=== PATIENT | male | born 1975 | race Caucasian/White ===

== ENCOUNTER → 2018-08-16 08:18 | Outpatient (CLI) | payer OTHER, SELFPAY ==
[2018-08-16 10:49] LABS: Vitamin D,25 Hydroxy 10.6 ng/mL (29.95-100.01)
[2018-08-16 12:13] LABS: Anion Gap 8 (5-15); BUN 14 mg/dL (7-18); BUN/Creat Ratio 15.7 RATIO (10-20); Calcium,Total 8.8 mg/dL (8.5-10.1); Chloride 102 mmol/L (98-107); Cholesterol 139 mg/dL (200); Creatinine, Serum 0.89 mg/dL (0.70-1.30); EST Glomerular Filtration Rate 99 mL/min (>60); Est Glom Filt Rate - Afr Amer 120 mL/min (>60); Glucose 101 mg/dL (74-106); High Density Lipoprotein 38 mg/dL; Potassium 4.1 mmol/L (3.5-5.1); Sodium Level 140 mmol/L (136-145); Thyroid Stim Hormone (TSH) 1.07 uIU/mL (0.358-3.74); Triglycerides 131 mg/dL; Very Low Density Lipoprotein 26 mg/dL (5-40)
== END ==
PROVIDERS: Family Provider Family Medicine; PCP Family Medicine; Visit Provider Family Medicine
DX: I10 Essential (primary) hypertension (principal); E55.9 Vitamin D deficiency, unspecified; R53.83 Other fatigue
CPT/HCPCS: 36415; 80048; 80061; 82306; 84443

== ENCOUNTER 2022-05-13 08:03 | Outpatient (CLI) | payer BC, SELFPAY ==
[2022-05-13 10:21] LABS: Vitamin D,25 Hydroxy 47.3 ng/mL
[2022-05-13 10:26] LABS: Anion Gap 6 (5-15); BUN 18 mg/dL (7-18); Calcium,Total 8.4 mg/dL (8.5-10.1); Chloride 105 mmol/L (98-107); Cholesterol 118 mg/dL (200); Creatinine, Serum 0.86 mg/dL (0.70-1.30); EST Glomerular Filtration Rate 102 mL/min (>60); Est Glom Filt Rate - Afr Amer 124 mL/min (>60); Glucose 123 mg/dL (74-106); High Density Lipoprotein 37 mg/dL; Potassium 3.7 mmol/L (3.5-5.1); Sodium Level 140 mmol/L (136-145); Thyroid Stim Hormone (TSH) 0.94 uIU/mL (0.358-3.74); Triglycerides 103 mg/dL; Very Low Density Lipoprotein 21 mg/dL (5-40)
[2022-05-17 17:39] LABS: Hemoglobin A1c 6.9 % (3.8-5.6)
== END 2022-05-13 23:59 | disposition home or self-care (01) ==
LOC: MFPLAB 08:04
PROVIDERS: PCP Family Medicine; Referring Provider Family Medicine; Visit Provider Family Medicine
DX: I10 Essential (primary) hypertension (principal); E11.9 Type 2 diabetes mellitus without complications; R53.83 Other fatigue
CPT/HCPCS: 36415; 80048; 80061; 82306; 83036; 84403; 84443

== ENCOUNTER → 2022-06-08 | Outpatient (CLI) | payer BC, SELFPAY | END | disposition home or self-care (01) | LOC: MFPLAB 11:01 | PROVIDERS: PCP Family Medicine; Referring Provider Family Medicine; Visit Provider Family Medicine | DX: R68.82 Decreased libido (principal) | CPT/HCPCS: 36415; 84403 ==

== ENCOUNTER → 2022-08-18 | Outpatient (CLI) | payer BC, SELFPAY ==
[2022-08-18 10:38] LABS: Anion Gap 4 (5-15); BUN 15 mg/dL (7-18); BUN/Creat Ratio 17.7 RATIO (10-20); Calcium,Total 9.1 mg/dL (8.5-10.1); Chloride 102 mmol/L (98-107); Creatinine, Serum 0.85 mg/dL (0.70-1.30); EST Glomerular Filtration Rate 104 mL/min (>60); Est Glom Filt Rate - Afr Amer 126 mL/min (>60); Glucose 149 mg/dL (74-106); Potassium 4.4 mmol/L (3.5-5.1); Sodium Level 137 mmol/L (136-145)
== END | disposition home or self-care (01) ==
LOC: MFPLAB 09:14
PROVIDERS: PCP Family Medicine; Referring Provider Family Medicine; Visit Provider Family Medicine
DX: E29.1 Testicular hypofunction (principal); E11.9 Type 2 diabetes mellitus without complications
CPT/HCPCS: 36415; 80048; 84403

== ENCOUNTER → 2023-02-13 | Outpatient (CLI) | payer BC, SELFPAY ==
[2023-02-13 10:37] LABS: Anion Gap 5 (5-15); BUN 16 mg/dL (7-18); BUN/Creat Ratio 17.6 RATIO (10-20); Calcium,Total 9.3 mg/dL (8.5-10.1); Chloride 103 mmol/L (98-107); Creatinine, Serum 0.91 mg/dL (0.70-1.30); EST Glomerular Filtration Rate 96 mL/min (>60); Est Glom Filt Rate - Afr Amer 116 mL/min (>60); Glucose 148 mg/dL (74-106); Potassium 4.1 mmol/L (3.5-5.1); Sodium Level 136 mmol/L (136-145); Thyroid Stim Hormone (TSH) 0.97 uIU/mL (0.358-3.74)
== END | disposition home or self-care (01) ==
LOC: MFPLAB 08:45
PROVIDERS: PCP Family Medicine; Visit Provider Family Medicine
DX: E11.9 Type 2 diabetes mellitus without complications (principal); E29.1 Testicular hypofunction; E66.9 Obesity, unspecified
CPT/HCPCS: 36415; 80048; 84403; 84443

== ENCOUNTER → 2023-09-18 | Outpatient (CLI) | payer BC, SELFPAY ==
[2023-09-18 10:35] LABS: Absolute Lymphocyte Count 2.51 X10^3/uL (0.83-4.51); Absolute Neutrophil Count 6.1 X10^3/uL (2.0-7.7); Basophil# 0.07 X10^3/uL; Basophil% 0.7 % (0-1); Eosinophil# 0.32 X10^3/uL; Eosinophils% 3.2 % (0-5); Hematocrit 45.4 % (40-54); Hemoglobin 14.4 g/dL (13.0-16.5); Lymphocyte # 2.51 X10^3/ul (0.83-4.51); Lymphocyte % 25.4 % (19-41); Mean Corp Hgb Conc 31.7 g/dL (32-36); Mean Corpuscular Hgb 27.5 pg (27.0-32.0); Mean Corpuscular Volume 86.6 fL (80-94); Mean Platelet Vol. 8.9 fl (6.2-12.0); Monocyte# 0.77 X10^3/uL; Monocyte% 7.8 % (0-10); NRBC Flagged by Analyzer 0 % (0-5); Neutrophil # 6.11 X10^3/uL (2.7-7.7); Neutrophil % 61.9 % (47-70); Platelet Count 400 K/mm3 (150-450); RBC Distribution Width CV 13.8 % (11.6-14.6); RBC Distribution Width SD 43.9 fl (35.1-43.9); Red Blood Count 5.24 M/mm3 (4.6-6.2); White Blood Count 9.9 K/mm3 (4.4-11.0)
[2023-09-18 11:01] LABS: Anion Gap 5 (5-15); BUN 16 mg/dL (7-18); BUN/Creat Ratio 18.8 RATIO (10-20); Calcium,Total 9.1 mg/dL (8.5-10.1); Chloride 108 mmol/L (98-107); Cholesterol 141 mg/dL (200); Creatinine, Serum 0.85 mg/dL (0.70-1.30); EST Glomerular Filtration Rate 102 mL/min (>60); Est Glom Filt Rate - Afr Amer 124 mL/min (>60); Glucose 128 mg/dL (74-106); High Density Lipoprotein 42 mg/dL; PSA,Total- Diagnostic 0.74 ng/mL (0.0-4.0); Potassium 4.1 mmol/L (3.5-5.1); Sodium Level 139 mmol/L (136-145); Triglycerides 96 mg/dL; Very Low Density Lipoprotein 19 mg/dL (5-40)
== END | disposition home or self-care (01) ==
LOC: MFPLAB 09:01
PROVIDERS: PCP Family Medicine; Visit Provider Family Medicine
DX: E29.1 Testicular hypofunction (principal); E11.69 Type 2 diabetes mellitus with other specified complication; E66.01 Morbid (severe) obesity due to excess calories
CPT/HCPCS: 36415; 80048; 80061; 84153; 84403; 85025

== ENCOUNTER → 2024-09-02 | Outpatient (CLI) | payer OTHER, SELFPAY ==
[2024-09-02 12:18] LABS: Protein, Urine (Random) 9.7 mg/dL (<11.9); Protein:Creat Ratio 98 mg/g CRE (0-200)
[2024-09-02 13:25] LABS: ALB/GLOB Ratio 0.7 RATIO (0.9-2.4); AST(SGOT) 39 U/L (15-37); Alanine Aminotransfer ALT/SGPT 81 U/L (16-61); Albumin, Serum 3.3 g/dL (3.2-5.0); Alkaline Phosphatase 63 U/L (45-117); Anion Gap 8 (5-15); BUN 12 mg/dL (7-18); BUN/Creat Ratio 13.6 RATIO (10-20); Calcium,Total 9.1 mg/dL (8.5-10.1); Chloride 105 mmol/L (98-107); Cholesterol 123 mg/dL (200); Creatinine, Serum 0.88 mg/dL (0.70-1.30); EST Glomerular Filtration Rate 98 mL/min (>60); Est Glom Filt Rate - Afr Amer 119 mL/min (>60); Globulin 4.5 g/dL (2.2-4.2); Glucose 124 mg/dL (74-106); High Density Lipoprotein 43 mg/dL; Potassium 3.7 mmol/L (3.5-5.1); Protein, Total 7.8 g/dL (6.4-8.2); Sodium Level 139 mmol/L (136-145); Thyroid Stim Hormone (TSH) 0.803 uIU/mL (0.358-3.740); Triglycerides 143 mg/dL; Very Low Density Lipoprotein 29 mg/dL (5-40)
== END | disposition home or self-care (01) ==
LOC: MFPLAB 09:34
PROVIDERS: PCP Family Medicine; Referring Provider Family Medicine; Visit Provider Family Medicine
DX: E11.69 Type 2 diabetes mellitus with other specified complication (principal); I10 Essential (primary) hypertension; N52.9 Male erectile dysfunction, unspecified

== ENCOUNTER → 2024-12-06 | Outpatient (CLI) | payer OTHER, SELFPAY ==
[2024-12-06 15:25] LABS: Absolute Lymphocyte Count 4.03 X10^3/uL (0.83-4.51); Absolute Neutrophil Count 8.9 X10^3/uL (2.0-7.7); Basophil# 0.08 X10^3/uL; Basophil% 0.5 % (0-1); Eosinophil# 0.35 X10^3/uL; Eosinophils% 2.4 % (0-5); Hematocrit 46.6 % (40-54); Hemoglobin 15.4 g/dL (13.0-16.5); Lymphocyte # 4.03 X10^3/ul (0.83-4.51); Lymphocyte % 27.5 % (19-41); Mean Corpuscular Hgb 27.7 pg (27.0-32.0); Mean Corpuscular Volume 83.8 fL (80-94); Mean Platelet Vol. 8.9 fl (6.2-12.0); Monocyte# 1.25 X10^3/uL; Monocyte% 8.5 % (0-10); NRBC Flagged by Analyzer 0 % (0-5); Neutrophil # 8.87 X10^3/uL (2.7-7.7); Neutrophil % 60.5 % (47-70); Platelet Count 473 K/mm3 (150-450); RBC Distribution Width CV 13.5 % (11.6-14.6); RBC Distribution Width SD 41.6 fl (35.1-43.9); Red Blood Count 5.56 M/mm3 (4.6-6.2); White Blood Count 14.7 K/mm3 (4.4-11.0)
[2024-12-06 16:15] LABS: ALB/GLOB Ratio 1.1 RATIO (0.9-2.4); AST(SGOT) 24 U/L (<=37); Alanine Aminotransfer ALT/SGPT 35 U/L (<=46); Albumin, Serum 4.1 g/dL (3.5-5.0); Alkaline Phosphatase 58 U/L (40-129); Anion Gap 11 (5-15); BUN 14 mg/dL (4-19); BUN/Creat Ratio 16.7 RATIO (10-20); Calcium,Total 9.6 mg/dL (7.6-11.0); Carbon Dioxide 26.2 mmol/L (21.0-32.0); Chloride 98 mmol/L (98-108); Creatinine, Serum 0.84 mg/dL (0.70-1.20); EST Glomerular Filtration Rate 107 (>60); Globulin 3.6 g/dL (2.2-4.2); Glucose 85 mg/dL (70-99); Protein, Total 7.7 g/dL (5.9-8.4); Sodium Level 136 mmol/L (133-145)
== END | disposition home or self-care (01) ==
LOC: MFPLAB 13:51
PROVIDERS: PCP Family Medicine; Referring Provider Family Medicine; Visit Provider Family Medicine
DX: E66.89 Other obesity not elsewhere classified (principal); E11.69 Type 2 diabetes mellitus with other specified complication
CPT/HCPCS: 36415; 80053; 84403; 85025

== ENCOUNTER 2025-05-23 07:31 | Day surgery (SDC) | payer OTHER, SELFPAY ==
--- OUTSIDE RECORDS SUMMARY | 2025-05-23 07:36 | XMS RPT_ITS | CCD ---
Author Organization [facility] Care Team Providers Care Boat Carpenter Name Role Phone Aron Alexander Referring Unavailable Catherine, Aron Primary Care Unavailable Catherine, Aron Attending Unavailable Aron Alexander Primary Care Unavailable Catherine, Aron Attending Unavailable Catherine, Aron Referring Unavailable Lionel Garcia Attending Unavailable Catherine, Aron Primary Care Unavailable Problems Problem Classification Problem Date Documented Da te Episodic/Chronic Diabetes mellitus with complications (1 source) Type 2 diabetes mellitus with other specified complication; Translations: [Type 2 diabetes mellitus with other specified complication] Onset: 09-25-2024 Chronic Unclassified (1 source) Other obesity not elsewhere classified; Translations: [Other obesity not elsewhere classified] Onset: 12-11-2024 Results Test Name Value Interpretation Reference Range Facility CBC W/Diff, Automatedon 04- Absolute Lymph 4.03 X10 3/uL Normal 0.83-4.51 [facility] Comment on above: Performed By: #### L 100.0100, L509.3001, L500.4050 #### [facility] [address] [place], [address] Absolute Neut 8.9 X10 3/uL High 2.0-7.7 [facility] Comment on above: Performed By: #### L 100.0100, L509.3001, L500.4050 #### [facility] [address] [place], [address] Basophils/100 WBC (Bld) 0.5 % Normal 0-1 [facility] Comment on above: Performed By: #### L 100.0100, L509.3001, L500.4050 #### [facility] [address] [place], [address] Eosinophils/100 WBC (Bld) 2.4 % Normal 0-5 [facility] Comment on above: Performed By: #### L 100.0100, L509.3001, L500.4050 #### [facility] [address] [place], [address] Erythrocyte distribution width (RBC) [Ratio] 13.5 % Normal 11.6-14.6 [facility] Comment on above: Performed By: #### L 100.0100, L509.3001, L500.4050 #### [facility] [address] [place], [address] Hematocrit (Bld) [Volume fraction] 46.6 % Normal 40-54 [facility] Comment on above: Performed By: #### L 100.0100, L509.3001, L500.4050 #### [facility] [address] [place], [address] Hemoglobin (Bld) [Mass/Vol] 15.4 g/dL Normal 13.0-16.5 [facility] Comment on above: Performed By: #### L 100.0100, L509.3001, L500.4050 #### [facility] [address] [place], [address] IG% 0.600 Normal 0.0-0.9 [facility] Comment on above: Result Comment: IG% - Immature Granulocytes (promyelocytes, myelocytes and metamyelocytes) > 1% indicates that a LEFT SHIFT is Present. Performed By: #### L 100.0100, L509.3001, L500.4050 #### [facility] [address] [place], [address] Lymphocytes/100 WBC (Bld) 27.5 % Normal 19-41 [facility] Comment on above: Performed By: #### L 100.0100, L509.3001, L500.4050 #### [facility] [address] [place], [address] MCH (RBC) [Entitic mass] 27.7 pg Normal 27.0-32.0 [facility] Comment on above: Performed By: #### L 100.0100, L509.3001, L500.4050 #### [facility] [address] [place], [address] MCHC (RBC) [Mass/Vol] 33.0 g/dL Normal 32-36 [facility] Comment on above: Performed By: #### L 100.0100, L509.3001, L500.4050 #### [facility] [address] [place], [address] MCV (RBC) [Entitic vol] 83.8 fL Normal 80-94 [facility] Comment on above: Performed By: #### L 100.0100, L509.3001, L500.4050 #### [facility] [address] [place], [address] Monocytes/100 WBC (Bld) 8.5 % Normal 0-10 [facility] Comment on above: Performed By: #### L 100.0100, L509.3001, L500.4050 #### [facility] [address] [place], [address] Neutrophils/100 WBC (Bld) 60.5 % Normal 47-70 [facility] Comment on above: Performed By: #### L 100.0100, L509.3001, L500.4050 #### [facility] [address] [place], [address] Nucleated RBC (Bld) [#/Vol] 0 10*3/uL Normal 0-5 [facility] Comment on above: Performed By: #### L 100.0100, L509.3001, L500.4050 #### [facility] [address] [place], [address] Platelet mean volume (Bld) [Entitic vol] 8.9 fL Normal 6.2-12.0 [facility] Comment on above: Performed By: #### L 100.0100, L509.3001, L500.4050 #### [facility] [address] [place], [address] Platelets (Bld) [#/Vol] 473 10*3/uL High 150-450 [facility] Comment on above: Performed By: #### L 100.0100, L509.3001, L500.4050 #### [facility] [address] [place], [address] RBC (Bld) [#/Vol] 5.56 10*6/uL Normal 4.6-6.2 [facility] Comment on above: Performed By: #### L 100.0100, L509.3001, L500.4050 #### [facility] [address] [place], [address] RDW SD 41.6 fl Normal 35.1-43.9 [facility] Comment on above: Performed By: #### L 100.0100, L509.3001, L500.4050 #### [facility] [address] [place], [address] WBC (Bld) [#/Vol] 14.7 10*3/uL High 4.4-11.0 [facility] Comment on above: Performed By: #### L 100.0100, L509.3001, L500.4050 #### [facility] [address] [place], [address] Comprehensive Metabolic Prof ilon 12-06-2024 Albumin [Mass/Vol] 4.1 g/dL Normal 3.5-5.0 [facility] Comment on above: Performed By: #### L 100.0100, L509.3001, L500.4050 #### [facility] [address] [place], [address] Albumin/Globulin [Mass ratio] 1.1 {ratio} Normal 0.9-2.4 [facility] Comment on above: Performed By: #### L 100.0100, L509.3001, L500.4050 #### [facility] [address] [place], [address] ALK PHOS 58 U/L Normal 40-129 [facility] Comment on above: Performed By: #### L 100.0100, L509.3001, L500.4050 #### [facility] [address] [place], [address] ALT [Catalytic activity/Vol] 35 U/L Normal <=46 [facility] Comment on above: Performed By: #### L 100.0100, L509.3001, L500.4050 #### [facility] [address] [place], [address] AST [Catalytic activity/Vol] 24 U/L Normal <=37 [facility] Comment on above: Performed By: #### L 100.0100, L509.3001, L500.4050 #### [facility] [address] [place], [address] Bilirubin [Mass/Vol] 0.40 mg/dL Normal 0.00-1.30 [facility] Comment on above: Performed By: #### L 100.0100, L509.3001, L500.4050 #### [facility] [address] [place], [address] BUN/CRE 16.7 RATIO Normal 10-20 [facility] Comment on above: Performed By: #### L 100.0100, L509.3001, L500.4050 #### [facility] [address] [place], [address] Calcium [Mass/Vol] 9.6 mg/dL Normal 7.6-11.0 [facility] Comment on above: Performed By: #### L 100.0100, L509.3001, L500.4050 #### [facility] [address] [place], [address] Chloride [Moles/Vol] 98 mmol/L Normal 98-108 [facility] Comment on above: Performed By: #### L 100.0100, L509.3001, L500.4050 #### [facility] [address] [place], [address] CO2 [Moles/Vol] 26.2 mmol/L Normal 21.0-32.0 [facility] Comment on above: Performed By: #### L 100.0100, L509.3001, L500.4050 #### [facility] [address] [place], [address] Creatinine [Mass/Vol] 0.84 mg/dL Normal 0.70-1.20 [facility] Comment on above: Performed By: #### L 100.0100, L509.3001, L500.4050 #### [facility] [address] [place], [address] GAP 11 Normal 5-15 [facility] Comment on above: Performed By: #### L 100.0100, L509.3001, L500.4050 #### [facility] [address] [place], [address] GFR/1.73 sq M.predicted among non-blacks MDRD (S/P/Bld) [Vol rate/Area] 107 mL/min/{1.73_m2} Normal >60 [facility] Comment on above: Result Comment: mL/m in/1.73m2 CKD-EPI Creatinine Equation (2020) Performed By: #### L 100.0100, L509.3001, L500.4050 #### [facility] [address] [place], [address] Globulin (S) [Mass/Vol] 3.6 g/dL Normal 2.2-4.2 [facility] Comment on above: Performed By: #### L 100.0100, L509.3001, L500.4050 #### [facility] [address] [place], [address] Glucose [Mass/Vol] 85 mg/dL Normal 70-99 [facility] Comment on above: Performed By: #### L 100.0100, L509.3001, L500.4050 #### [facility] [address] [place], [address] Potassium [Moles/Vol] 4.0 mmol/L Normal 3.3-5.1 [facility] Comment on above: Performed By: #### L 100.0100, L509.3001, L500.4050 #### [facility] [address] [place], [address] Sodium [Moles/Vol] 136 mmol/L Normal 133-145 [facility] Comment on above: Performed By: #### L 100.0100, L509.3001, L500.4050 #### [facility] [address] [place], [address] T PROT 7.7 g/dL Normal 5.9-8.4 [facility] Comment on above: Performed By: #### L 100.0100, L509.3001, L500.4050 #### [facility] [address] [place], [address] Urea nitrogen [Mass/Vol] 14 mg/dL Normal 4-19 [facility] Comment on above: Performed By: #### L 100.0100, L509.3001, L500.4050 #### [facility] [address] [place], [address] L509.3001on 12-06-2024 Testosterone [Mass/Vol] 596.00 ng/dL Normal 300-890 [facility] Comment on above: Performed By: #### L 100.0100, L509.3001, L500.4050 #### [facility] [address] [place], [address] Comprehensive Metabolic Prof ilon 09-02-2024 Albumin [Mass/Vol] 3.3 g/dL Normal 3.2-5.0 [facility] Comment on above: Performed By: #### L 509.3000, L500.4100, L501.0900, L501.9520, L500.4050 #### [facility] [address] [place], [address] Albumin/Globulin [Mass ratio] 0.7 {ratio} Low 0.9-2.4 [facility] Comment on above: Performed By: #### L 509.3000, L500.4100, L501.0900, L501.9520, L500.4050 #### [facility] [address] [place], [address] ALK P 63 U/L Normal 45-117 [facility] Comment on above: Performed By: #### L 509.3000, L500.4100, L501.0900, L501.9520, L500.4050 #### [facility] [address] [place], [address] ALT [Catalytic activity/Vol] 81 U/L High 16-61 [facility] Comment on above: Performed By: #### L 509.3000, L500.4100, L501.0900, L501.9520, L500.4050 #### [facility] [address] [place], [address] AST [Catalytic activity/Vol] 39 U/L High 15-37 [facility] Comment on above: Performed By: #### L 509.3000, L500.4100, L501.0900, L501.9520, L500.4050 #### [facility] [address] [place], [address] Bilirubin [Mass/Vol] 0.30 mg/dL Normal 0.20-1.00 [facility] Comment on above: Result Comment: For patients on eltrombopag therapy, use of Dimension [place] TBIL is not recommended. Performed By: #### L 509.3000, L500.4100, L501.0900, L501.9520, L500.4050 #### [facility] [address] [place], [address] BUN/CRE 13.6 RATIO Normal 10-20 [facility] Comment on above: Performed By: #### L 509.3000, L500.4100, L501.0900, L501.9520, L500.4050 #### [facility] [address] [place], [address] CA,Total 9.1 mg/dL Normal 8.5-10.1 [facility] Comment on above: Performed By: #### L 509.3000, L500.4100, L501.0900, L501.9520, L500.4050 #### [facility] [address] [place], [address] Chloride [Moles/Vol] 105 mmol/L Normal 98-107 [facility] Comment on above: Performed By: #### L 509.3000, L500.4100, L501.0900, L501.9520, L500.4050 #### [facility] [address] [place], [address] CO2 [Moles/Vol] 26.0 mmol/L Normal 21.0-32.0 [facility] Comment on above: Performed By: #### L 509.3000, L500.4100, L501.0900, L501.9520, L500.4050 #### [facility] [address] [place], [address] Creatinine [Mass/Vol] 0.88 mg/dL Normal 0.70-1.30 [facility] Comment on above: Result Comment: The validity of the calculated GFR GFRAA in patients over 70 years has not been determined. Clinical correlation is essential. Performed By: #### L 509.3000, L500.4100, L501.0900, L501.9520, L500.4050 #### [facility] [address] [place], [address] EST GFR - AA 119 mL/min Normal >60 [facility] Comment on above: Result Comment: Afri can [place]ine[place] GFR Calc Performed By: #### L 509.3000, L500.4100, L501.0900, L501.9520, L500.4050 #### [facility] [address] [place], [address] GAP 8 Normal 5-15 [facility] Comment on above: Performed By: #### L 509.3000, L500.4100, L501.0900, L501.9520, L500.4050 #### [facility] [address] [place], [address] GFR/1.73 sq M.predicted among non-blacks MDRD (S/P/Bld) [Vol rate/Area] 98 mL/min/{1.73_m2} Normal >60 [facility] Comment on above: Result Comment: Non- GFR Calc Performed By: #### L 509.3000, L500.4100, L501.0900, L501.9520, L500.4050 #### [facility] [address] [place], [address] Globulin (S) [Mass/Vol] 4.5 g/dL High 2.2-4.2 [facility] Comment on above: Performed By: #### L 509.3000, L500.4100, L501.0900, L501.9520, L500.4050 #### [facility] [address] [place], [address] Glucose [Mass/Vol] 124 mg/dL High 74-106 [facility] Comment on above: Result Comment: Fast ing Glucose result from 100 to 125 mg/dL suggests IMPAIRED HOMEOSTASIS per A.D.A. criteria. Performed By: #### L 509.3000, L500.4100, L501.0900, L501.9520, L500.4050 #### [facility] [address] [place], [address] Potassium [Moles/Vol] 3.7 mmol/L Normal 3.5-5.1 [facility] Comment on above: Performed By: #### L 509.3000, L500.4100, L501.0900, L501.9520, L500.4050 #### [facility] [address] [place], [address] Sodium [Moles/Vol] 139 mmol/L Normal 136-145 [facility] Comment on above: Performed By: #### L 509.3000, L500.4100, L501.0900, L501.9520, L500.4050 #### [facility] [address] [place], [address] T PROT 7.8 g/dL Normal 6.4-8.2 [facility] Comment on above: Performed By: #### L 509.3000, L500.4100, L501.0900, L501.9520, L500.4050 #### [facility] [address] [place], [address] Urea nitrogen [Mass/Vol] 12 mg/dL Normal 7-18 [facility] Comment on above: Performed By: #### L 509.3000, L500.4100, L501.0900, L501.9520, L500.4050 #### [facility] [address] [place], [address] Lipid Profileon 09-02-2024 Cholesterol [Mass/Vol] 123 mg/dL Normal 200 [facility] Comment on above: Result Comment: <200 mg/dL Desirable 200-240 mg/dL Borderline >240 mg/dL High Risk Performed By: #### L 509.3000, L500.4100, L501.0900, L501.9520, L500.4050 #### [facility] [address] [place], [address] Cholesterol in HDL [Mass/Vol] 43 mg/dL Normal [facility] Comment on above: Result Comment: The drugs N-Acetylcysteine and Metamizole may falsely depress this assay. Reference Range HDL <40 mg/dL Low HDL Cholesterol HDL >or= 60 mg/dL High HDL Cholesterol Performed By: #### L 509.3000, L500.4100, L501.0900, L501.9520, L500.4050 #### [facility] [address] [place], [address] Cholesterol in LDL [Mass/Vol] 51 mg/dL Normal 0-130 [facility] Comment on above: Performed By: #### L 509.3000, L500.4100, L501.0900, L501.9520, L500.4050 #### [facility] [address] [place], [address] Cholesterol in VLDL [Mass/Vol] 29 mg/dL Normal 5-40 [facility] Comment on above: Performed By: #### L 509.3000, L500.4100, L501.0900, L501.9520, L500.4050 #### [facility] [address] [place], [address] Triglyceride [Mass/Vol] 143 mg/dL Normal [facility] Comment on above: Result Comment: The drugs N-Acetylcysteine and Metamizole may falsely depress this assay. Serum Triglycerides Reference Interval Normal <150 mg/dL Borderline high 150 - 199 mg/dL High 200 - 499 mg/dL Very High > or = 500 mg/dL Performed By: #### L 509.3000, L500.4100, L501.0900, L501.9520, L500.4050 #### [facility] [address] [place], [address] Protein+Creatinine Ratio,Uri neon 09-02-2024 PROT:CRE RATIO 98 mg/g CRE Normal 0-200 [facility] Comment on above: Performed By: #### L 509.3000, L500.4100, L501.0900, L501.9520, L500.4050 #### [facility] [address] [place], [address] Protein (U) [Mass/Vol] 9.7 mg/dL Normal <11.9 [facility] Comment on above: Performed By: #### L 509.3000, L500.4100, L501.0900, L501.9520, L500.4050 #### [facility] [address] [place], [address] UR CREAT 98.80 mg/dL Normal NO RANGE EST. [facility] Comment on above: Performed By: #### L 509.3000, L500.4100, L501.0900, L501.9520, L500.4050 #### [facility] [address] [place], [address] Testosterone, Serum Totalon 09-02-2024 Testosterone [Mass/Vol] 83.08 ng/dL Normal [facility] Comment on above: Result Comment: CENT RAL 90% REFERENCE RANGES MALE AGE <50 197.44 - 669.58 ng/dL MALE AGE > or = 50 187.72 - 684.19 ng/dL FEMALE AGE <50 8.38 - 35.01 ng/dL FEMALE AGE > or = 50 <7.00 - 35.92 ng/dL Effective as of 03/16/21 Performed By: #### L 509.3000, L500.4100, L501.0900, L501.9520, L500.4050 #### [facility] [address] [facility] [place], [address] Thyroid Stim Hormone (TSH)on 09-02-2024 TSH 0.803 uIU/mL Normal 0.358-3.740 [facility] Comment on above: Performed By: #### L 509.3000, L500.4100, L501.0900, L501.9520, L500.4050 #### [facility] [address] [place], [address] Basophil percentageOrdered B y: Aron Alexander on 02-13-2023 Chloride [Moles/Vol] 103 mmol/L 98-107 [facility] Glucose [Mass/Vol] 148 mg/dL 74-106 [facility] Comment on above: Fasting Glucose resu lt greater than or equal to 126 mg/dL suggests DIABETES MELLITUS per A.D.A. criteria. Potassium [Moles/Vol] 4.1 mmol/L 3.5-5.1 [facility] Sodium [Moles/Vol] 136 mmol/L 136-145 [facility] Testosterone [Mass/Vol] 99.51 ng/dL [facility] Comment on above: CENTRAL 90% REFERENC E RANGES MALE AGE <50 197.44 - 669.58 ng/dL MALE AGE > or = 50 187.72 - 684.19 ng/dL FEMALE AGE <50 8.38 - 35.01 ng/dL FEMALE AGE > or = 50 <7.00 - 35.92 ng/dL Effective as of 03/16/21 Laboratory - Chemistry and C hemistry - challengeOrdered By: Aron Alexander on 02-13-2023 CO2 [Moles/Vol] 28.0 mmol/L 21.0-32.0 [facility] Urea nitrogen/Creatinine [Mass ratio] 17.6 mg/mg -20 [facility] No Panel InformationOrdered By: Aron Alexander on 02-13-2023 Estimated GFR (MDRD) Amer 116 mL/min >60 [facility] Comment on above: GFR Calc Estimated GFR (MDRD) Non-Af Amer 96 mL/min >60 [facility] Comment on above: Non- GFR Calc Thyroid Stimulating Hormone (TSH) 0.97 uIU/mL 0.358-3.74 [facility] Serum or plasma calcium gopi urement (mass/volume)Ordered By: Aron Alexander on 02-13-2023 Calcium [Mass/Vol] 9.3 mg/dL 8.5-10.1 [facility] Serum or plasma creatinine m easurement (mass/volume)Ordered By: Aron Alexander on 02-13-2023 Creatinine [Mass/Vol] 0.91 mg/dL 0.70-1.30 [facility] Comment on above: The validity of the calculated GFR & GFRAA in patients over 70 years has not been determined. Clinical correlation is essential. Serum or plasma urea nitroge n measurement (mass/volume)Ordered By: Aron Alexander on 02-13-2023 Urea nitrogen [Mass/Vol] 16 mg/dL 7-18 [facility] Thin prep Papanicolaou smear with manual screeningOrdered By: Aron Alexander on 02-13-2023 Thin prep Papanicolaou smear with manual screening 5 5-15 [facility] Basophil percentageon 2021 Chloride [Moles/Vol] 102 mmol/L 98-107 [facility] Work Phone: Glucose [Mass/Vol] 149 mg/dL 74-106 [facility] Work Phone: Comment on above: Fasting Glucose resu lt greater than or equal to 126 mg/dL suggests DIABETES MELLITUS per A.D.A. criteria. Potassium [Moles/Vol] 4.4 mmol/L 3.5-5.1 [facility] Work Phone: Sodium [Moles/Vol] 137 mmol/L 136-145 [facility] Work Phone: Testosterone [Mass/Vol] 295.49 ng/dL [facility] Work Phone: Comment on above: CENTRAL 90% REFERENC E RANGES MALE AGE <50 197.44 - 669.58 ng/dL MALE AGE > or = 50 187.72 - 684.19 ng/dL FEMALE AGE <50 8.38 - 35.01 ng/dL FEMALE AGE > or = 50 <7.00 - 35.92 ng/dL Effective as of 03/16/21 Laboratory - Chemistry and C hemistry - challengeon 08-18-2022 CO2 [Moles/Vol] 31.0 mmol/L 21.0-32.0 [facility] Work Phone: Urea nitrogen/Creatinine [Mass ratio] 17.7 mg/mg - [facility] Work Phone: No Panel Informationon 08-18 Estimated GFR (MDRD) Amer 126 mL/min >60 [facility] Work Phone: Comment on above: GFR Calc Estimated GFR (MDRD) Non-Af Amer 104 mL/min >60 [facility] Work Phone: Comment on above: Non- GFR Calc Serum or plasma calcium gopi urement (mass/volume)on 08-18-2022 Calcium [Mass/Vol] 9.1 mg/dL 8.5-10.1 [facility] Work Phone: Serum or plasma creatinine m easurement (mass/volume)on 08-18-2022 Creatinine [Mass/Vol] 0.85 mg/dL 0.70-1.30 [facility] Work Phone: Comment on above: The validity of the calculated GFR & GFRAA in patients over 70 years has not been determined. Clinical correlation is essential. Serum or plasma urea nitroge n measurement (mass/volume)on 08-18-2022 Urea nitrogen [Mass/Vol] 15 mg/dL 7-18 [facility] Work Phone: Thin prep Papanicolaou smear with manual screeningon 08-18-2022 Thin prep Papanicolaou smear with manual screening 4 5-15 [facility] Work Phone: Basophil percentageon 2021 Testosterone [Mass/Vol] 96.53 ng/dL [facility] Work Phone: Comment on above: CENTRAL 90% REFERENC E RANGES MALE AGE <50 197.44 - 669.58 ng/dL MALE AGE > or = 50 187.72 - 684.19 ng/dL FEMALE AGE <50 8.38 - 35.01 ng/dL FEMALE AGE > or = 50 <7.00 - 35.92 ng/dL Effective as of 03/16/21 Basophil percentageon 2021 Chloride [Moles/Vol] 105 mmol/L 98-107 [facility] Work Phone: Cholesterol [Mass/Vol] 118 mg/dL <200 [facility] Work Phone: Comment on above: <200 mg/dL Desirable 200-240 mg/dL Borderline >240 mg/dL High Risk Glucose [Mass/Vol] 123 mg/dL 74-106 [facility] Work Phone: Comment on above: Fasting Glucose resu lt from 100 to 125 mg/dL suggests IMPAIRED HOMEOSTASIS per A.D.A. criteria. Potassium [Moles/Vol] 3.7 mmol/L 3.5-5.1 [facility] Work Phone: Sodium [Moles/Vol] 140 mmol/L 136-145 [facility] Work Phone: Testosterone [Mass/Vol] 86.50 ng/dL [facility] Work Phone: Comment on above: CENTRAL 90% REFERENC E RANGES MALE AGE <50 197.44 - 669.58 ng/dL MALE AGE > or = 50 187.72 - 684.19 ng/dL FEMALE AGE <50 8.38 - 35.01 ng/dL FEMALE AGE > or = 50 <7.00 - 35.92 ng/dL Effective as of 03/16/21 Triglyceride [Mass/Vol] 103 mg/dL <199 [facility] Work Phone: Comment on above: The drugs N-Acetylcy steine and Metamizole may falsely depress this assay.Serum Triglycerides Reference Interval Normal <150 mg/dL Borderline high 150 - 199 mg/dL High 200 - 499 mg/dL Very High > or = 500 mg/dL Laboratory - Chemistry and C hemistry - challengeon 05-13-2022 CO2 [Moles/Vol] 29.0 mmol/L 21.0-32.0 [facility] Work Phone: Urea nitrogen/Creatinine [Mass ratio] 21.0 mg/mg 10-20 [facility] Work Phone: No Panel Informationon 05-13 Estimated GFR (MDRD) Amer 124 mL/min >60 [facility] Work Phone: Comment on above: GFR Calc Estimated GFR (MDRD) Non-Af Amer 102 mL/min >60 [facility] Work Phone: Comment on above: Non- GFR Calc Thyroid Stimulating Hormone (TSH) 0.94 uIU/mL 0.358-3.74 [facility] Work Phone: Vitamin D 25-Hydroxy 47.3 ng/mL [facility] Work Phone: Comment on above: Vitamin D 25(OH) Sta tus Range Deficiency <20 ng/mL (50nmol/L) Insufficiency 20 - 30 ng/mL (50 - 75 nmol/L) Sufficiency 30 - 100 ng/mL (75 - 250 nmol/L) Toxicity >100 ng/mL (>250 nmol/L) Serum or plasma calcium gopi urement (mass/volume)on 05-13-2022 Calcium [Mass/Vol] 8.4 mg/dL 8.5-10.1 [facility] Work Phone: Serum or plasma cholesterol in HDL measurement (mass/volume)on 05-13-2022 Cholesterol in HDL [Mass/Vol] 37 mg/dL >40 [facility] Work Phone: Comment on above: The drugs N-Acetylcy steine and Metamizole may falsely depress this assay. Reference Range HDL <40 mg/dL Low HDL Cholesterol HDL >or= 60 mg/dL High HDL Cholesterol Serum or plasma cholesterol in VLDL measurement (mass/volume)on 05-13-2022 Cholesterol in VLDL [Mass/Vol] 21 mg/dL 5-40 [facility] Work Phone: Serum or plasma creatinine m easurement (mass/volume)on 05-13-2022 Creatinine [Mass/Vol] 0.86 mg/dL 0.70-1.30 [facility] Work Phone: Comment on above: The validity of the calculated GFR & GFRAA in patients over 70 years has not been determined. Clinical correlation is essential. Serum or plasma low density lipoprotein (LDL) cholesterol measurement (mass/volume)on 05-13-2022 Cholesterol in LDL [Mass/Vol] 60 mg/dL 0-130 [facility] Work Phone: Serum or plasma urea nitroge n measurement (mass/volume)on 05-13-2022 Urea nitrogen [Mass/Vol] 18 mg/dL 7-18 [facility] Work Phone: Thin prep Papanicolaou smear with manual screeningon 05-13-2022 Thin prep Papanicolaou smear with manual screening 6 5-15 [facility] Work Phone: Whole blood hemoglobin A1c/t otal hemoglobin ratio (mass fraction)on 05-13-2022 HbA1c (Bld) [Mass fraction] 6.9 % 3.8-5.6 [facility] Work Phone: Comment on above: Normal < 5.7 % Predi abetic 5.7 - 6.4 % Diabetic >or= 6.5 % Please note range changes. Encounters Encounter Date Encounter Type Care Provider Facility Start: 05-23-2025 ambulatory Lionel Verma lity:[facility] Start: 12-06-2024 End: 12-06-2024 [facility] Start: 09-02-2024 End: 09-02-2024 ambulatory Aron Alexander Facility:[facility] Start: 02-13-2023 End: 02-13-2023 ambulatory [facility] Work Phone: Start: 02-13-2023 End: 02-13-2023 Patient encounter procedure [facility] Start: 08-18-2022 End: 08-18-2022 ambulatory [facility] Work Phone: Start: 08-18-2022 End: 08-18-2022 [facility] Start: 06-08-2022 End: 06-08-2022 ambulatory [facility] Work Phone: Start: 06-08-2022 End: 06-08-2022 Patient encounter procedure [facility] Start: 05-13-2022 End: 05-13-2022 Patient encounter procedure [facility] Payers Date Payer Category Payer Self-pay [id number] 2024 Unknown [id number] Private Health Insurance [employer] [id number] Unknown ANTHEM [id number] Unknown [id number] Unknown [id number] Unknown [id number] Social History Date Type Detail Facility Tobacco smoking stat [facility] Unknown if ever smoked [facility] Work Phone: Start: 1975 Sex Assigned At Male W [facility] Evaluation note Note Date & Type Note Facility Evaluation note No assessment information availa ble [facility] Work Phone: Summary Purpose Family History No Family History Records Found Advance Directives No Advanced Directives Records Found Additional Source Comments Goals (unrecognized section and content) Goals may be documented in a n alternate sectionGoals may be documented in an alternate section Care Teams (unrecognized sec tion and content) Team Status: Active Member Role Status Dates Dr. Issa Og MD Family Provider Active Dr. Aron Alexander MD Primary Care Provider Active Team Status: Inactive Member Role Status Dates Dr. Aron Alexander MD Primary Care Provider, Attending Provider Active (unrecognized sect ion and content) No Status Records Found INFORMATION SOURCE (unrecogn ized section and content) DATE CREATED AUTHOR 04/29/2025 [facility] FOR RECORDS PERTAINING TO PATIENTS WHO ARE OR HAVE BEEN ENROLLED IN A CHEMICAL DEPENDENCY/SUBSTANCEABUSE PROGRAM, SOME INFORMATION MAY BE OMITTED. This clinical summary was aggregated from multiple sources. Caution should be exercised in using it in the provision of clinical care. This summary normalizes information from multiple sources, and as a consequence, information in this document may materially change the coding, format and clinical context of patient data. In addition, data may be omitted in some cases. CLINICAL DECISIONS SHOULD BE BASED ON THE PRIMARY CLINICAL RECORDS. [employer] provides no warranty or guarantee of the accuracy or completeness of information in this document.
--- NOTE | 2025-05-23 07:51 | PCM.PRE.AN2 ---
ASA Classification* ASA Classification ASA Classification: 2 Assessment & Plan Anesthesia* Anesthesia Assessment Anesthesia Assessment: Discussed sedation and/or anesthesia options, risks, benefits, and alternatives with patient/parents/legal guardian/POA. Questions invited. The patient/parents/legal guardian/POA seems to understand and agrees to proceed with anesthesia plan. Reviewed the physical assessment, medical history, allergy history and patient home medications list prior to surgery/procedure/anesthetic and documented any changes. Performed airway and anesthesia risk assessments. Anesthesia Type Anesthesia Type: MAC Anesthesia Focused Assessment* Airway Assessment Mouth opens: >3 cm Mallampati Score: II Labs Anesthesia Preop lab: CBC WBC, (4.4-11.0) 14.7 K/mm3 H 12/06/24, 13:52 RBC, (4.6-6.2) 5.56 M/mm3 12/06/24, 13:52 Hgb, (13.0-16.5) 15.4 g/dL 12/06/24, 13:52 Hct, (40-54) 46.6 % 12/06/24, 13:52 Plt Count, (150-450) 473 K/mm3 H 12/06/24, 13:52 CHEMISTRY Potassium, (3.3-5.1) 4.0 mmol/L 12/06/24, 13:52 Sodium, (133-145) 136 mmol/L 12/06/24, 13:52 BUN, (4-19) 14 mg/dL 12/06/24, 13:52 Creatinine, (0.70-1.20) 0.84 mg/dL 12/06/24, 13:52 Glucose, (70-99) 85 mg/dL 12/06/24, 13:52 TSH, (0.358-3.740) 0.803 uIU/mL 09/02/24, 09:35 COAG Pre-Assessment Diagnosis/Proposed Procedure Planned Operative Procedure(s): CSCOPE OA Anesthesia History Anesthesia History - residential monitor: Anesthesia History - residential monitor Hx Hospitalization No 05/21/25 11:00 Any Problems With Anesthesia No 05/21/25 11:00 Cholinesterase deficiency No 05/21/25 11:00 You/Your Family Experience No 05/21/25 11:00 fever (hyperthermia) with Relationship Recent Exposure to Contagious Disease Does patient have nerve No 05/21/25 11:00 stimulator Patient instructed to have device shut off --Does patient have Pacemaker or ICD? When Was Last Pacemaker Check QUESTION #4 FULL TEXT: You/Your Family Experience fever (hyperthermia) with Anesthesia Last Oral Intake Last Oral intake: Last Oral Intake NPO since Meds taken in AM with sips of water? Meds patient instructed to take am of surgery PONV PONV - residential monitor: PONV - residential monitor Female No 05/21/25 11:00 HX of Motion Sickness Yes 05/21/25 11:00 HX of N/V After Surgery No 05/21/25 11:00 Non-Smoker Yes 05/21/25 11:00 Duration of Surgery greater No 05/21/25 11:00 than 60 minutes Number of Risk Factors 2 05/21/25 11:00 PONV Score Moderate Risk 05/21/25 11:00 Respiratory Assessment Respiratory Assessment - residential monitor: Respiratory Tract Infection Hx - residential monitor Hx Respiratory Tract Infection No 05/21/25 11:00 STOP Sleep Apnea STOP Sleep Apnea - residential monitor: STOP Sleep Apnea - residential monitor Hx Hypertension Yes: CONTROLLED WITH MEDS 05/21/25 11:00 Hx Sleep Apnea Yes 05/21/25 11:00 CPAP Yes 05/21/25 11:00 BIPAP No 05/21/25 11:00 Do you snore loudly (louder than talking or can be heard Do you often feel tired/ fatigued/ sleepy during daytime? Has anyone observed you stop breathing during sleep? STOP Results Positive 05/21/25 11:00 QUESTION #5 FULL TEXT : Do you snore loudly (louder than talking or can be heard through closed doors)? Tobacco Use History Tobacco Use History - residential monitor: Tobacco Use History - residential monitor Tobacco Use Smoking Status Never smoker 05/21/25 11:00 Hx Tobacco Use No 05/21/25 11:00 Years Smoking Packs Smoked per Day Smoking Cessation Date was within the last 15 years Hx Smoking Cessation Date Hx Smoking Cessation Counseling Hematologic Medial History Hematologic Hx - residential monitor: Hematologic Medical Hx - computer specialist Hx of Blood Transfusion No 05/21/25 11:00 Hx of Transfusion in last 3 No 05/21/25 11:00 Months Date of Last Transfusion (if within last 3 months) Ever experience any problems No 05/21/25 11:00 with transfusion(s)? Specify any problems Hx of Preganancy in last 3 N/A 05/21/25 11:00 Months Nurse Filling Out Transfusion DSCHRIBER 05/21/25 11:00 & Questions: Date: 05/21/25 05/21/25 11:00 Time: 11:01 05/21/25 11:00 Patient unable to answer at this time (ie. confused, unrespo /Reproduction History /Reproductive History - residential monitor: /Reproductive Hx- residential monitor Hx Now No 05/21/25 11:00 Gestational Age (in weeks): EDC: Hx Hx Para Hx Section SAB No 05/21/25 11:00 Active Medications Active Medications: Current Medications Generic Name Dose Route Start Last Admin Trade Name Freq PRN Reason Stop Dose Admin Lactated Ringer's 1,000 mls @ 15 mls/hr 05/23/25 07:45 IV .Q48H JOHN PFSH Medical History Wears glasses Anxiety Diabetes Dietary restriction Gastric reflux Non-smoker CPAP (continuous positive airway pressure) dependence History of edema Hypertension Home Medications ?Medication ?Instructions ?Recorded ?Last Taken ?Type amlodipine 10 mg tablet 10 mg PO DAILY 05/21/25 Unknown History escitalopram oxalate 10 mg tablet 10 mg PO DAILY 05/21/25 Unknown History hydrochlorothiazide 25 mg tablet 25 mg PO DAILY 05/21/25 Unknown History lisinopril 40 mg tablet 40 mg PO DAILY 05/21/25 Unknown History magnesium carb,citrate,oxide 300 mg PO DAILY 05/21/25 Unknown History (Magnesium Complex) metformin 1,000 mg tablet 1,000 mg PO DAILY 05/21/25 Unknown History omeprazole magnesium 20 mg 20 mg PO DAILY PRN GERD 05/21/25 Unknown History tablet,delayed release (Prilosec OTC) testosterone cypionate 200 mg/mL 200 mg IM .Q2WEEK 05/21/25 Unknown History intramuscular oil Allergy/AdvReac Type Severity Reaction Status Date / Time No Known Allergies Allergy Verified 05/21/25 10:56 Surgical History No history of previous surgery Social History Smoking Status: Never smoker Review of Systems (Anesthesia) ROS Narrative System reviewed and no additional complaints, except as documented.
[2025-05-23 07:54] VITALS: BP 140/79; PULSE 76; RESP 16; TEMP 36.6; O2SAT 100; BMI 42.9
[2025-05-23] MEDS: Lactated Ringers 1,000 ML 15 ML IV (08:16)
--- NOTE | 2025-05-23 08:46 | H&P.OPEN ---
HPI - General HPI Narrative GUY FERNANDEZ, is a 49 M who presents for screening colonoscopy. The patient has never had a colonoscopy in the past. He denies abdominal pain or blood in stool. He denies family history of colon cancer. [facility] Medical History Wears glasses Anxiety Diabetes Dietary restriction Gastric reflux Non-smoker CPAP (continuous positive airway pressure) dependence History of edema Hypertension Home Medications ?Medication ?Instructions ?Recorded ?Last Taken ?Type amlodipine 10 mg tablet 10 mg PO DAILY 05/21/25 Unknown History escitalopram oxalate 10 mg tablet 10 mg PO DAILY 05/21/25 Unknown History hydrochlorothiazide 25 mg tablet 25 mg PO DAILY 05/21/25 Unknown History lisinopril 40 mg tablet 40 mg PO DAILY 05/21/25 Unknown History magnesium carb,citrate,oxide 300 mg PO DAILY 05/21/25 Unknown History (Magnesium Complex) metformin 1,000 mg tablet 1,000 mg PO DAILY 05/21/25 Unknown History omeprazole magnesium 20 mg 20 mg PO DAILY PRN GERD 05/21/25 Unknown History tablet,delayed release (Prilosec OTC) testosterone cypionate 200 mg/mL 200 mg IM .Q2WEEK 05/21/25 Unknown History intramuscular oil Allergy/AdvReac Type Severity Reaction Status Date / Time No Known Allergies Allergy Verified 05/23/25 07:53 Surgical History No history of previous surgery Social History Smoking Status: Never smoker Past Medical/Surgical History Planned Operation Planned Operative Procedure(s): CSCOPE OA Previous Hospitalizations/Surgeries HX Hospitalizations: No Any Problems With Anesthesia: No You/Your Family Experience Fever (Hyperthermia) With Anes: No Cholinesterase deficiency: No Cardiovascular Hx Hypertension: Yes (CONTROLLED WITH MEDS) Respiratory Hx Sleep Apnea: Yes CPAP: Yes BIPAP: No Hx Respiratory Tract Infection/Cold (presently): No Result (for STOP score): Positive Smoking Status: Never smoker Neurological Does patient have nerve stimulator: No Reproduction : No Miscellaneous Recent Exposure to Contagious Disease: No Allergies No Known Allergies Allergy (Verified 05/23/25 07:53) Discharge Is Pt Admitted From a Snf, or a Correction: No After D/C, Where Do you Plan to Go: Return Home Vital Signs Vital Signs Vital Signs: 05/23/25 07:54 05/23/25 07:54 Temperature 98 F Temperature Source Temporal Pulse Rate 76 Respiratory Rate 16 Respiratory Pattern Normal Blood Pressure 140/79 H Blood Pressure Mean 99 Blood Pressure Source Monitor Blood Pressure Position Semi-Fowlers Blood Pressure Location Left Arm Pulse Ox 100 Oxygen Delivery Method Room Air Weight Weight: 352 lb 11.834 oz Body Mass Index (BMI) 42.9 Physical Exam Const alert and oriented x3 HEENT normocephalic Eyes PERRL Resp normal respiratory effort and normal air movement Cardio regular rate and regular rhythm GI soft to palpation, non-tender and non-distended Extremity normal to inspection Assessment & Plan Assessment/Plan (1) Screen for colon cancer: PLAN: I explained endoscopy in detail to the patient. I explained the risks including but not limited to stroke or heart attack with anesthesia, perforation of the GI tract, bleeding, infection. I explained that any of these could necessitate further emergency surgery. The patient understands and all questions were answered sufficiently. The patient wishes to proceed with procedure. Lionel Garcia MD Pager: [facility] [address] [place] [address], [address] [place] [address] Office: Surgery Risks - Colonoscopy Risks Include but are not Limited To: Risks include but are not limited to: Bleeding, perforation requiring further surgery, inability to complete colonoscopy requiring barium enema.
--- NOTE | 2025-05-23 09:11 | OP.PROVAT_ITS ---
05/23/2025 Aron Alexander MD [address] [phone] Re : Colonoscopy procedure for Shahram Siegel Dear Dr. Alexander This procedure was performed on Friday, May 23, 2025. My impressions and recommendations are as follows: Impressions : - The entire examined colon is normal on direct and retroflexion views. - No specimens collected. Recommendations : - Discharge patient to home. - Resume previous diet. - Continue present medications. - Repeat colonoscopy in 10 years for screening purposes. My findings are described in the full procedure note, which is enclosed. If I can be of further assistance, please feel free to contact me at Doctor phone number(s): , Work: . Sincerely, Lionel Garcia MD 05/23/2025 9:11:04 AM This report has been signed electronically.
--- NOTE | 2025-05-23 09:11 | OP.COLON_ITS ---
Patient Name: Shahram Siegel Procedure Date: 05/23/2025 8:50 AM Date of : 1975 Age: 49 Procedure: Colonoscopy Indications: Screening for colorectal malignant neoplasm Providers: Lionel Garcia MD Referring MD: Lionel Garcia MD Medicines: Propofol per Anesthesia Patient Profile: This is a 49 year old male. Refer to note in patient chart for documentation of history and physical. Last Colonoscopy: none. The patient's first colonoscopy is today. Complications: No immediate complications. Procedure: Pre-Anesthesia Assessment: - Prior to the procedure, a History and Physical was performed, and patient medications and allergies were reviewed. The patient's tolerance of previous anesthesia was also reviewed. The risks and benefits of the procedure and the sedation options and risks were discussed with the patient. All questions were answered, and informed consent was obtained. Prior Anticoagulants: The patient has taken no anticoagulant or antiplatelet agents. After reviewing the risks and benefits, the patient was deemed in satisfactory condition to undergo the procedure. After I obtained informed consent, the scope was passed under direct vision. Throughout the procedure, the patient's blood pressure, pulse, and oxygen saturations were monitored continuously. The pediatric colonoscope was introduced through the anus and advanced to the cecum, identified by appendiceal orifice and ileocecal valve. The colonoscopy was performed without difficulty. The patient tolerated the procedure well. The quality of the bowel preparation was good. The ileocecal valve, appendiceal orifice, and rectum were photographed. Scope In: 9:00:13 AM Scope Withdrawal Time 0 hours 6 minutes 17 seconds Scope Out: 9:08:51 AM Total Procedure Duration Time 0 hours 8 minutes 38 seconds Findings: The entire examined colon appeared normal on direct and retroflexion views. Impression: - The entire examined colon is normal on direct and retroflexion views. - No specimens collected. Recommendation: - Discharge patient to home. - Resume previous diet. - Continue present medications. - Repeat colonoscopy in 10 years for screening purposes. Procedure Code(s): --- Professional --- 63962, Colonoscopy, flexible; diagnostic, including collection of specimen(s) by brushing or washing, when performed (separate procedure) Diagnosis Code(s): --- Professional --- Z12.11, Encounter for screening for malignant neoplasm of colon CPT copyright 2021 [employer]. All rights reserved. The codes documented in this report are preliminary and upon procurement representative review may be revised to meet current compliance requirements. Lionel Garcia MD 05/23/2025 9:11:04 AM This report has been signed electronically. Number of Addenda: 0 Note Initiated On: 05/23/2025 8:50 AM
[2025-05-23 09:15] VITALS: BP 140/79; PULSE 70; RESP 18; TEMP 36.4; O2SAT 95
[2025-05-23 09:16] VITALS: BP 102/63; PULSE 71; RESP 12; TEMP 36.4; O2SAT 99
--- NOTE | 2025-05-23 09:16 | PCM.POST.ANE ---
Anesthesia: Postop Eval I Current Vital Signs Temperature: 97.5 F Pulse Rate: 71 Blood Pressure: 102/63 Respiratory Rate: 12 Pulse Ox: 99 Oxygen Delivery Method: Room Air Assessment Airway patent: Yes Spontaneous unlabored respirations: Yes Mental status: Awake and Calm nausea: No Vomiting: No Anesthesia Complication: No Fluid Hydration Crystalloid volume administer (ml): 200 Total IV fluid infused: 200 Progress Note Anesthesia document: Postop Eval 1 completed: Yes
[2025-05-23 09:20] VITALS: BP 114/71; BP 140/79; PULSE 69; RESP 18; O2SAT 95
[2025-05-23 09:25] VITALS: BP 112/72; BP 140/79; PULSE 75; RESP 18; TEMP 36.7; O2SAT 96
[2025-05-23 09:40] VITALS: BP 140/79
--- NOTE | 2025-05-23 10:31 | POSTOPAN2_ITS ---
Anesthesia Postop Eval I Sum Postop Eval Completion status Anesthesia document: Postop Eval 1 completed: Yes Anesthesia Postop Eval I Summary Anesthesia Postop Eval I Summary: Anesthesia Postop Eval I: Assessment Summary Airway patent Yes 05/23/25 09:16 STRAIGHTENING PRESS OPERATOR HELPER.SHOF Spontaneous unlabored Yes 05/23/25 09:16 STRAIGHTENING PRESS OPERATOR HELPER.SHOF respirations Mental status Awake,Calm 05/23/25 09:16 STRAIGHTENING PRESS OPERATOR HELPER.SHOF nausea No 05/23/25 09:16 STRAIGHTENING PRESS OPERATOR HELPER.SHOF Vomiting No 05/23/25 09:16 STRAIGHTENING PRESS OPERATOR HELPER.SHOF Anesthesia Postop Eval I: Fluid Summary Crystalloid volume administer 200 05/23/25 09:16 STRAIGHTENING PRESS OPERATOR HELPER.SHOF (ml) Colloids volume administered ( ml) Blood Product volume administered (ml) Total IV fluid infused 200 05/23/25 09:16 STRAIGHTENING PRESS OPERATOR HELPER.SHOF Anesthesia Postop Eval I: Summary Notes Anesthesia Complication No 05/23/25 09:16 STRAIGHTENING PRESS OPERATOR HELPER.SHOF Anesthesia Complication Comment: Post-operative progress note Anesthesia: Postop Eval II Evaluation Mental status: Awake Pain Level: 0 nausea: No Vomiting: No
--- NOTE | 2025-05-23 10:31 | PCM.POSTANE2 ---
Anesthesia Postop Eval I Sum Postop Eval Completion status Anesthesia document: Postop Eval 1 completed: Yes Anesthesia Postop Eval I Summary Anesthesia Postop Eval I Summary: Anesthesia Postop Eval I: Assessment Summary Airway patent Yes 05/23/25 09:16 SEASONAL TAX PREPARER.SHOF Spontaneous unlabored Yes 05/23/25 09:16 SEASONAL TAX PREPARER.SHOF respirations Mental status Awake,Calm 05/23/25 09:16 SEASONAL TAX PREPARER.SHOF nausea No 05/23/25 09:16 SEASONAL TAX PREPARER.SHOF Vomiting No 05/23/25 09:16 SEASONAL TAX PREPARER.SHOF Anesthesia Postop Eval I: Fluid Summary Crystalloid volume administer 200 05/23/25 09:16 SEASONAL TAX PREPARER.SHOF (ml) Colloids volume administered ( ml) Blood Product volume administered (ml) Total IV fluid infused 200 05/23/25 09:16 SEASONAL TAX PREPARER.SHOF Anesthesia Postop Eval I: Summary Notes Anesthesia Complication No 05/23/25 09:16 SEASONAL TAX PREPARER.SHOF Anesthesia Complication Comment: Post-operative progress note Anesthesia: Postop Eval II Evaluation Mental status: Awake Pain Level: 0 nausea: No Vomiting: No
== END 2025-05-23 10:56 | disposition home or self-care (01) ==
LOC: EN 07:32 → AC 07:33
PROVIDERS: PCP Family Medicine; Referring Provider Family Medicine; Visit Provider Surgery
PROC: 0DJD8ZZ Inspection of Lower Intestinal Tract, Via Natural or Artificial Opening Endoscopic (ICD-10-PCS; CPT 45378; principal; 2025-05-23 08:25)
DX: Z12.11 Encounter for screening for malignant neoplasm of colon (principal); E11.9 Type 2 diabetes mellitus without complications; I10 Essential (primary) hypertension; Z79.84 Long term (current) use of oral hypoglycemic drugs; F41.9 Anxiety disorder, unspecified; Z79.899 Other long term (current) drug therapy; K21.9 Gastro-esophageal reflux disease without esophagitis
CPT/HCPCS: 45378; 82962